=== PATIENT | male | born 1980 ===

== ENCOUNTER 2016-09-15 14:39 | Emergency (ER) | payer OTHER ==
[2016-09-15 14:39] VITALS: BMI 29.9
[2016-09-15 14:51] VITALS: TEMP 98.6; O2SAT 100
[2016-09-15 16:01] LABS: BASO # 0.1 K/uL (0.0-0.2); BASO % 1.2 % (0.0-2.0); EOS # 0.2 K/uL (0.0-0.7); EOS % 2.5 % (0.0-4.0); HEMOGLOBIN 14.8 g/dL (12.0-18.0); LYMPH # 1.7 K/uL (1.0-4.3); LYMPH % 21.5 % (20.0-40.0); MEAN CELL VOLUME 89.2 fl (80.0-94.0); MEAN CORPUSCULAR HEMOGLOBIN 30.2 pg (27.0-31.0); MEAN CORPUSCULAR HGB CONC 33.8 g/dL (33.0-37.0); MEAN PLATELET VOLUME 8.4 fl (7.2-11.7); MONO # 0.6 K/uL (0.0-0.8); MONO % 7.1 % (0.0-10.0); NEUT # 5.5 K/uL (1.8-7.0); NEUT % 67.7 % (50.0-75.0); RBC 4.9 Mil/uL (4.40-5.90); RED CELL DISTRIBUTION WIDTH 12.9 % (11.5-14.5)
--- NOTE | 2016-09-15 16:11 | ED PDOC ---
HPI: Chest Pain Time Seen by Provider: 09/15/16 15:00 Chief Complaint (Nursing): Chest Pain Chief Complaint (Provider): Chest Pain History Per: Patient History/Exam Limitations: no limitations Onset/Duration Of Symptoms: Days (1) Current Symptoms Are (Timing): Still Present Quality: "Pain" Additional Complaint(s): Grant Vincent is a 35 y/o male presenting to the ER on 09/15/2016 with complaints of chest pain for one day. Patient reports pain is localized to his right rib cage. He states there was no trauma to the area, but says pain may have originated due to lifting weights at the gym. Pain, which worsens upon deep breaths, is not associated with a fever, cough, or other symptoms at this time. Past Medical History Reviewed: Historical Data, Nursing Documentation, Vital Signs Vital Signs: Last Vital Signs Temp 98.6 F 09/15/16 14:49 Pulse 89 09/15/16 18:44 Resp 16 09/15/16 18:44 BP 139/112 H 09/15/16 18:44 Pulse Ox 100 09/15/16 18:44 - Medical History PMH: Gastritis - Surgical History Surgical History: No Surg Hx - Family History Family History: States: Unknown Family Hx - Social History Current smoker - smoking cessation education provided: Yes (5 cigarettes/day) Alcohol: Social (daily) Drugs: Denies - Immunization History Hx Tetanus Toxoid Vaccination: No Hx Influenza Vaccination: No Hx Pneumococcal Vaccination: No - Home Medications Home Medications: Ambulatory Orders Medication Instructions Recorded Omeprazole Magnesium [Prilosec Otc] 20 mg PO DAILY #15 tcp 05/08/16 - Allergies Allergies/Adverse Reactions: Allergies Allergy/AdvReac Type Severity Reaction Status Date / Time No Known Allergies Allergy Verified 09/15/16 14:49 Review of Systems ROS Statement: Except As Marked, All Systems Reviewed And Found Negative Constitutional: Negative for: Fever Cardiovascular: Positive for: Chest Pain Respiratory: Negative for: Cough, Sputum Physical Exam - Reviewed Nursing Documentation Reviewed: Yes Vital Signs Reviewed: Yes - Physical Exam Appears: Positive for: Non-toxic, Uncomfortable Head Exam: Positive for: ATRAUMATIC, NORMOCEPHALIC Skin: Positive for: Normal Color. Negative for: Rash Eye Exam: Positive for: Normal appearance Neck: Positive for: Normal, Painless ROM, Supple Cardiovascular/Chest: Positive for: Regular Rate, Rhythm. Negative for: Chest Non Tender ((+) tenderness to the right rib cage), Murmur Respiratory: Positive for: Normal Breath Sounds. Negative for: Respiratory Distress Gastrointestinal/Abdominal: Positive for: Normal Exam, Soft. Negative for: Tenderness Extremity: Positive for: Normal ROM. Negative for: Deformity, Swelling Neurologic/Psych: Positive for: Alert, Oriented. Negative for: Motor/Sensory Deficits - Laboratory Results Result Diagrams: 09/15/16 15:30 09/15/16 15:30 - ECG ECG Rhythm: Positive for: Sinus Rhythm (normal sinus at 93 bpm) O2 Sat by Pulse Oximetry: 100 Medical Decision Making Medical Decision Makin:16 Initial Impression- 35 y/o male with chest pain ro cardiac etiology rule out pneumonia Initial Plan- * EKG * Chest x-ray * CMP * Toradol 30 mg IMP Chest x-ray FINDINGS: LUNGS: No active pulmonary disease. PLEURA: No significant pleural effusion identified. No pneumothorax apparent. CARDIOVASCULAR: Normal. OSSEOUS STRUCTURES: No significant abnormalities. VISUALIZED UPPER ABDOMEN: Normal. OTHER FINDINGS: None. IMPRESSION: No active disease. 17:52 Chest x-ray reviewed, shows no acute findings. Patient reports improved condition upon re-evaluation. Patient was advised to use Ibuprofen as needed for his pain. Need for follow-up with PMD and return precautions was given. Patient was also made aware of his elevated LFTs. Condition is stable for discharge. Documented by Josee Escobar, acting as a scribe for Daniel Wayne MD. All medical record entries made by the Scribe were at my direction and personally dictated by me. I have reviewed the chart and agree that the record accurately reflects my personal performance of the history, physical exam, medical decision making, and the department course for this patient. I have also personally directed, reviewed, and agree with the discharge instructions and disposition. Disposition - Clinical Impression Clinical Impression: Chest wall pain - Patient ED Disposition Is Patient to be Admitted: No Counseled Patient/Family Regarding: Studies Performed, Diagnosis, Need For Followup - Disposition Referrals: [facility] [Outside] [facility] [Outside] Disposition: Routine/Home Disposition Time: 16:00 Condition: IMPROVED Additional Instructions: follow up with your primary doctor in 1-2 days take motrin for pain return to ED with any worsening or concerning symptoms. Instructions: Chest Wall Pain (ED) Forms: [facility] (Swazi)
[2016-09-15 16:13] LABS: ALB/GLOB RATIO 1.6 (1.0-2.1); ALBUMIN 4.7 g/dL (3.5-5.0); ALT/SGPT 164 U/L (21-72); AST/SGOT 93 U/L (17-59); BLOOD UREA NITROGEN 19 mg/dl (9-20); CALCIUM 9.7 mg/dL (8.4-10.2); GFR AFRICAN-AMERICAN > 60; GFR NON-AFRICAN AMERICAN > 60
--- NOTE | 2016-09-15 16:27 | RAD ---
HISTORY: shortness of breath COMPARISON: No prior. TECHNIQUE: Chest PA and lateral FINDINGS: LUNGS: No active pulmonary disease. PLEURA: No significant pleural effusion identified. No pneumothorax apparent. CARDIOVASCULAR: Normal. OSSEOUS STRUCTURES: No significant abnormalities. VISUALIZED UPPER ABDOMEN: Normal. OTHER FINDINGS: None. IMPRESSION: No active disease.
[2016-09-15 18:44] VITALS: BP 139/112; PULSE 89; RESP 16
== END 2016-09-15 18:30 | disposition home or self-care (01) ==
LOC: H.ER 14:39
DX: R07.89 Other chest pain (principal)